=== PATIENT | female | born 1980 | race Caucasian/White ===

== ENCOUNTER → 2017-11-08 | Outpatient (CLI) | payer MEDICARE ==
[~2017-11-08] MED LIST: ALBU8.5H8 INH; BETA15OI4 TP; BUPR150T20 PO; CELE200C PO; CYCL-259 PO; DULO60CA7 PO; FLUC150T2 PO; GABA300C10 PO; HYDR100V IV; HYOS0.1260 PO; LEVE250T5 PO; LIDO5CRE19 TP; LIDO700A42 TD; LIDOCAINE 2% PO; LINA290C PO; LORA1TAB PO; LUBI24CA7 PO; MESA4ENE3 RC; ONDA4SOL IV; ONDA8TAB15 PO; PANT40TA3 PO; PANT40VI IV; RING10003 IV; SUMA50TA4 PO; TEMA15CA6 PO; [UNRECOGNIZED DRUG - OTHER] IV; [UNRECOGNIZED DRUG - OTHER] PO
== END ==
LOC: STAR 09:25
PROVIDERS: ATTEND Internal Medicine Geriatric Medicine
DX: Z02.9 Encounter for administrative examinations, unspecified (principal)

== ENCOUNTER 2017-11-12 09:52 | Day surgery (SDC) | payer MEDICARE ==
[~2017-11-12] VITALS: Ht 162.6 cm; Wt 76.8 kg
[2017-11-12] MEDS ORDERED: LACTATED RINGERS 1,000 ML IV SCH (11:20)
[2017-11-12] MEDS ORDERED: PROPOFOL 10 MG/ML, 20ML ONE ×2 (12:24)
[2017-11-12] MEDS ORDERED: BUPIVACAINE/PF 0.25% IV ONE (12:30)
[2017-11-12] MEDS ORDERED: TRIAMCINOLONE ACETONIDE 40 MG/ML, 1ML IM ONE (12:30)
[2017-11-12] MEDS: ONDANSETRON 2MG/ML, 2ML IVPush PRN ×2 (13:00→13:45)
[2017-11-12] MEDS ORDERED: MIDAZOLAM 1 MG/ML, 2ML IV PRN (13:00)
[2017-11-12] MEDS ORDERED: OXYcodone 5 MG/5 ML ORAL.SOL UDC PO PRN (13:00)
[2017-11-12] MEDS ORDERED: LORazepam 2 MG/ML, 1ML IVPush PRN (13:00)
[2017-11-12] MEDS ORDERED: LABETALOL 5MG/ML, 20ML IV PRN (13:00)
[2017-11-12] MEDS ORDERED: ONDANSETRON 2MG/ML, 2ML ONE ×2 (13:00→13:42)
[2017-11-12] MEDS ORDERED: HYDROmorphone 1 MG/ML, 1ML IV PRN (13:00)
[2017-11-12] MEDS ORDERED: EPHEDRINE 50 MG/ML, 1ML IVPush PRN (13:00)
[2017-11-12] MEDS ORDERED: DEXAMETHASONE 4 MG/ML, 5ML ONE (13:42)
[2017-11-12] MEDS ORDERED: MIDAZOLAM 1 MG/ML, 2ML ONE (13:50)
[2017-11-12] MEDS ORDERED: DEXAMETHASONE 4 MG/ML, 1ML IVPush ONE (14:00)
== END 2017-11-12 15:50 ==
LOC: OUT 09:52
PROVIDERS: ATTEND Internal Medicine Geriatric Medicine
DX: K31.89 Other diseases of stomach and duodenum (principal); K86.89 Other specified diseases of pancreas; F32.9 Major depressive disorder, single episode, unspecified; F41.9 Anxiety disorder, unspecified; Z87.39 Personal history of other diseases of the musculoskeletal system and connective tissue; Z90.710 Acquired absence of both cervix and uterus; Z98.890 Other specified postprocedural states; Z90.49 Acquired absence of other specified parts of digestive tract
CPT/HCPCS: 43242; J1100; J2250; J2405; J2704; J3301; J3490; J7120

== ENCOUNTER 2018-12-17 08:17 | Day surgery (SDC) | payer MEDICARE ==
[~2018-12-17] VITALS: Ht 162.6 cm; Wt 87.7 kg
[2018-12-17 09:01] VITALS: BP 123/86
[2018-12-17] MEDS ORDERED: LACTATED RINGERS 1,000 ML IV SCH (09:09)
[2018-12-17] MEDS ORDERED: TEMA15CA6 PO (09:19)
[2018-12-17] MEDS ORDERED: LEVE250T28 PO (09:19)
[2018-12-17] MEDS ORDERED: CYCL5TAB PO (09:19)
[2018-12-17] MEDS ORDERED: ALBU90AE INH (09:19)
[2018-12-17] MEDS ORDERED: LORA-446 PO (09:19)
[2018-12-17] MEDS ORDERED: GABA300C10 PO (09:19)
[2018-12-17] MEDS ORDERED: HYOS0.1260 PO (09:19)
[2018-12-17] MEDS ORDERED: PANT40TA3 PO (09:19)
[2018-12-17] MEDS ORDERED: CARB1DRO13 EACHEYE (09:19)
[2018-12-17] MEDS ORDERED: DULO60CA7 PO (09:19)
[2018-12-17] MEDS ORDERED: ONDA8TAB9 PO (09:19)
[2018-12-17] MEDS ORDERED: SUMA50TA3 PO (09:19)
[2018-12-17] MEDS ORDERED: GRAN1TAB PO (09:19)
[2018-12-17] MEDS ORDERED: BUPR150T73 PO (09:19)
[2018-12-17 09:40] LABS: BASOPHILS # (AUTO) 0.04 x10^3/uL (0-0.1); BASOPHILS % (AUTO) 1 % (0-1); EOSINOPHILS # (AUTO) 0.28 x10^3/uL (0-0.4); EOSINOPHILS % (AUTO) 4 % (1-7); LYMPHOCYTES # (AUTO) 1.99 x10^3/uL (1-3.4); LYMPHOCYTES % (AUTO) 27 % (22-44); MD NO; MEAN CORPUSCULAR HEMOGLOBIN 29.2 pg (27.0-34.8); MEAN CORPUSCULAR HGB CONC 33.2 g/dL (32.4-35.8); MEAN CORPUSCULAR VOLUME 88.1 fL (80-100); MEAN PLATELET VOLUME 7.6 fL (7.4-10.4); MONOCYTES % (AUTO) 6 % (2-9); NEUTROPHILS # (AUTO) 4.55 x10^3/uL (1.8-6.8); NEUTROPHILS % (AUTO) 63 % (42-75); PLATELET COUNT 290 x10^3/uL (130-400); RED BLOOD COUNT 3.97 x10^6/uL (3.82-5.3); RED CELL DISTRIBUTION WIDTH 13.3 % (9.6-15.2)
[2018-12-17] MEDS ORDERED: PROPOFOL 10 MG/ML, 20ML ONE ×7 (09:57→11:03)
[2018-12-17] MEDS ORDERED: ETHYL ALCOHOL 98%, 5 ML ONE (10:00)
[2018-12-17] MEDS ORDERED: BUPIVACAINE 0.25% ONE (10:00)
[2018-12-17] MEDS ORDERED: TRIAMCINOLONE ACETONIDE 40 MG/ML, 1ML ONE (10:00)
[2018-12-17] MEDS ORDERED: hydrALAzine 20 MG/ML, 1ML IV PRN (10:30)
[2018-12-17] MEDS ORDERED: ONDANSETRON ODT 8 MG PO PRN (10:30)
[2018-12-17] MEDS ORDERED: LABETALOL 5MG/ML, 20ML IV PRN (10:30)
[2018-12-17] MEDS ORDERED: HYDROmorphone 2 MG/ML, 1ML IVPush PRN (10:30)
[2018-12-17] MEDS ORDERED: ONDANSETRON 2MG/ML, 2ML IV PRN (10:30)
[2018-12-17] MEDS ORDERED: OXYcodone 5 MG/5 ML ORAL.SOL UDC PO PRN (10:30)
[2018-12-17] MEDS ORDERED: MORPHINE SULFATE 4 MG/ML, 1ML ONE (11:27)
[2018-12-17] MEDS: MORPHINE SULFATE 4 MG/ML, 1ML IVPush PRN ×2 (11:30→11:38)
[2018-12-17] MEDS ORDERED: ONDANSETRON 2MG/ML, 2ML ONE (11:45)
== END 2018-12-17 13:45 | disposition home or self-care (01) ==
LOC: OUT 08:17
PROVIDERS: ATTEND Internal Medicine Geriatric Medicine
DX: R10.13 Epigastric pain (principal); J45.909 Unspecified asthma, uncomplicated; Z79.82 Long term (current) use of aspirin; Z88.1 Allergy status to other antibiotic agents; Z88.8 Allergy status to other drugs, medicaments and biological substances
CPT/HCPCS: 36415; 43242; 64680; 85025; J2405; J2704; J3301; J3490; J7120